=== PATIENT | female | born 1950 | race Caucasian/White ===

== ENCOUNTER 2023-04-16 03:10 | Outpatient (CLI) | payer MEDICARE, OTHER, SELFPAY | END 2023-04-16 03:11 | disposition home or self-care (01) | LOC: AMB 05-03 11:57 | PROVIDERS: Visit Provider Family Medicine | DX: S06.5XAS Traumatic subdural hemorrhage with loss of consciousness status unknown, sequela (principal); S02.91XS Unspecified fracture of skull, sequela | CPT/HCPCS: A0425; A0426 ==

== ENCOUNTER 2025-03-29 16:22 | Outpatient (CLI) | payer MEDICARE, SELFPAY | END 2025-03-29 16:23 | disposition home or self-care (01) | LOC: AMB 03-30 16:22 | PROVIDERS: Visit Provider Family Medicine | DX: I49.9 Cardiac arrhythmia, unspecified (principal) | CPT/HCPCS: A0425; A0427 ==